=== PATIENT | male | born 1960 | race Caucasian/White ===

== ENCOUNTER 2024-05-19 17:47 | Emergency (ER) | payer BC, SELFPAY ==
[2024-05-19 18:01] VITALS: BP 190/123
[2024-05-19 18:44] LABS: % Basophils 1.1 % (0-2); % Eosinophils 3.6 % (0-6); % Immature Granulocytes 0.5 % (0-0.5); % Lymphocytes 24.3 % (20.5-51.1); % Monocytes 8.2 % (1.7-9.3); % Neutrophils 62.3 % (42.2-75.2); Absolute Basophils 0.1 10^3/uL (0-0.2); Absolute Eosinophils 0.3 10^3/uL (0-0.7); Absolute Monocytes 0.7 10^3/uL (0.1-0.6); Absolute Neutrophils 5.2 10^3/uL (1.4-6.5); Hemoglobin 15.8 g/dL (13.0-18.0); Mean Corp Hgb Conc. 35.1 g/dL (33.0-37.0); Mean Corpuscular Hgb 31.6 pg (27.0-31.0); Mean Platelet Volume 9.2 fL (7.4-10.4); Nucleated Red Blood Cells % 0 % (-); Platelet Count 252 10^3/uL (130-400); Red Cell Dist. Width 12.4 % (11.5-14.5); White Blood Cell Count 8.3 10^3/uL (4.8-10.8)
[2024-05-19 19:10] LABS: ALT (SGPT) 21 U/L (0-50); AST (SGOT) 23 U/L (17-59); Albumin 4.4 g/dl (3.5-5.0); Alkaline Phosphatase 61 U/L (38-126); Blood Urea Nitrogen 15 mg/dl (9-20); Calcium 9.5 mg/dl (8.4-10.2); Carbon Dioxide 26 mmol/L (22-30); Chloride 103 mmol/L (98-107); Glucose 91 mg/dl (70-99); Potassium 4.4 mmol/L (3.5-5.1); Sodium 141 mmol/L (135-145); Total Bilirubin 0.6 mg/dl (0.2-1.3); Total Protein 6.8 g/dl (6.3-8.2); eGFR > 60.00
[2024-05-19 20:06] VITALS: BP 217/108
[2024-05-19 20:29] VITALS: BMI 27.5
[2024-05-19 21:00] VITALS: BP 225/116
--- NOTE | 2024-05-19 21:14 | ED.GENMED ---
History of Present Illness
General
Chief Complaint: Blood Pressure Problem
Source: patient
Exam Limitations: none
Time Seen by Provider: 05/19/24 20:13
Nursing documentation reviewed up to this point in time: agreed with
History of Present Illness
History of Present Illness:
Patient presents to ED secondary to persistently elevated blood pressure noted at home over the past 2 weeks. 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
taking shower. When he checked his blood pressure it was noted to be greater than 180 systolic. Since then, patient has been checking his blood pressure daily with blood pressure fluctuating between 160 and 190 systolic. This afternoon, with
elevated blood pressure, patient called his primary care physician's office for appointment. Unfortunately, patient was not able to obtain appointment soon and was referred to urgent care center for an evaluation. At urgent care center, patient's
blood pressure was noted to be elevated and referred to ED for 'hypertensive crisis'. However, patient denies headache. Denies dizziness. Denies chest pain. Denies nausea or vomiting. Denies diaphoresis. Denies shortness of breath
Past History
Past History
ED Past Medical History: Other
Social History
Personal:
Living: with family
Employment: Employed
Review of Systems
Review of Systems
Allergies reviewed?: Yes
All Other Systems: ROS reviewed and negative except as documented in HPI and ROS
Constitutional: Reports no symptoms
Respiratory: Reports no symptoms; Denies trouble breathing
Cardiac: Reports no symptoms; Denies chest pain
ABD/GI: Reports no symptoms
Musculoskeletal: Reports no symptoms
Skin: Reports no symptoms
Neurological: Reports no symptoms; Denies dizzy or headache
Phy Exam
Physical Exam
Physical Exam:
Physical Exam
General: no apparent distress, not acutely ill. afebrile. hypertensive
Head: nc/at. eomi
Neck: supple. no meningeal signs.
Heart: s1/s2 regular rate and rhythm, no murmur. equal radial pulses.
Lungs: no acute respiratory distress. clear bilaterally
Abdomen: normal bowel sounds. not tender.
Neuro: alert and oriented. no focal neurological deficits
Skin: no rash
Psychiatric: well kept. interactive and cooperative
Extremities: no edema. no calf tenderness.
Course
Orders/Labs/Results
Orders:
Orders
05/19/24 18:06
ECG [Electrocardiogram (*1)] Urgent
Reason for Study: Other
Other Reason for Exam: elevated blood pressure
EKG- Treatment ONCE
05/19/24 18:25
Complete Blood Count/With Diff Urgent
Comprehensive Metabolic Panel Urgent
TSH Reflex To Free T4 Urgent
Comment: ADDON
05/19/24 20:54
Add On- LAB Urgent
Tests Added?: TSH to reflex Free T4
05/19/24 21:06
Troponin I Urgent
05/19/24 21:19
Electrocardiogram (*1) Urgent
Reason for Study: Hypertension, Benign
EKG- Treatment ONCE
05/19/24 21:44
HydrALAZINE [Apresoline] 10 mg IV NOW STA
Lisinopril [Zestril] 5 mg PO NOW STA
05/19/24 21:55
Urinalysis Reflex To Culture Urgent
Date Specimen was Collected: 05/19/24
Time Specimen was Collected: 21:46
Urine Microscopic Reflex Cult Urgent
Abnormal Lab Results
05/19/24 05/19/24
18:25 21:55
MCH 31.6 H pg
(27.0-31.0)
Absolute Monos (auto) 0.7 H 10^3/uL
(0.1-0.6)
Ur Occult Blood Reflex 3+ A
(Negative)
Urine RBC 11-15 A /HPF
(0-2)
05/19/24 18:25
05/19/24 18:25
Vital Signs
Initial and Last Documented VS:
Initial Vital Signs
Temp Pulse Resp BP Pulse Ox
99.2 F 74 18 190/123 96
05/19/24 18:01 05/19/24 18:01 05/19/24 18:01 05/19/24 18:01 05/19/24 18:01
Last Documented Vital Signs
Temp Pulse Resp BP Pulse Ox
99.2 F 64 22 179/100 94
05/19/24 18:01 05/19/24 23:00 05/19/24 21:00 05/19/24 23:00 05/19/24 21:30
MDM/Problems Addressed
MDM/Problems Addressed:
Patient with an unremarkable workup in ED, including blood work and urinalysis. Fortunately, although remains hypertensive, there is no indication for any endorgan damage at this time. As such, in light of patient's persistently elevated blood
pressure, decision made to start patient on lisinopril 5 mg daily, along with close PCP follow-up as an outpatient.
*Critical Care Note
Total Time (30-74mins, 75-104mins- exclusive of procedures): Not Applicable
ED Attending Note
-
Portions of this chart may have been created with voice recognition software.� Occasional wrong word or��sound alike� substitutions may have occurred due to the inherent limitations of voice recognition software.
Discharge Plan
Departure
Patient Disposition: Home (Routine Discharge)
Date of Disposition: 05/19/24
Time of Disposition: 22:56
Patient with high blood pressure during this ER visit?: Yes
Condition: Good
Discharge Problem:
Hypertension
Instructions: High Blood Pressure (DC)
Prescriptions:
New
lisinopril 5 mg tablet
5 mg PO DAILY Qty: 30 0RF
No Action
No Meds [No Current Medications]
0
metronidazole 500 MG tablet
500 mg PO TID Qty: 30 0RF
hydrocodone-acetaminophen 5 MG/500 MG tablet
1 tab PO Q6HPRN PRN (Reason: PAIN) Qty: 15 0RF
levofloxacin 500 MG tablet
500 mg PO DAILY 10 Days 0RF
Referrals:
NONE,* [Family Provider] -
Activity Restrictions/Additional Instructions:
As discussed, please follow-up with your primary care physician for reevaluation. Your prescription has been sent electronically to [facility] pharmacy in [place].
Interventions
Interventions:
*Risk Screen - Suicide Last Done: 05/19/24 20:34
*General Assessment Last Done: 05/19/24 20:34
*Neglect/Abuse Screening Last Done: 05/19/24 20:34
ED- Fall Risk Assessment Last Done: 05/19/24 20:29
*ED COVID-19 Vaccine History Last Done: 05/19/24 23:30
*Nursing Disposition Last Done: 05/19/24 23:30
ED- Cardiac Assessment Last Done: 05/19/24 20:29
ED- Neurological Assessment Last Done: 05/19/24 20:29
ED- Pulmonary Assessment Last Done: 05/19/24 20:29
Discharge Date and Time
Discharge Date/Time: 05/19/24 23:30
Print Language: [id number]
[2024-05-19 21:47] LABS: Troponin I < 0.012 ng/ml
[2024-05-19] MEDS: ZESTRIL 5 MG PO (21:55)
[2024-05-19] MEDS: APRESOLINE 10 MG IV (21:56)
[2024-05-19 22:00] VITALS: BP 189/100
[2024-05-19 22:05] LABS: TSH Reflex To Free T4 1.16 uIU/ml (0.47-4.68)
[2024-05-19 22:12] LABS: Urine Albumin Negative (Neg - Trace); Urine Bilirubin Negative (Negative); Urine Character Clear (Clear); Urine Color Yellow; Urine Glucose Negative (Negative); Urine Ketone Negative (Negative); Urine Leukocyte Negative (Negative); Urine Nitrite Negative (Negative); Urine Occult Blood 3+ (Negative); Urine Urobilinogen Negative (Neg - 1+)
[2024-05-19 22:20] VITALS: BP 182/96
[2024-05-19 22:29] LABS: Urine White Cell 0-2 /HPF (0-5)
[2024-05-19 23:00] VITALS: BP 179/100
== END 2024-05-19 23:30 | disposition home or self-care (01) ==
LOC: EMR 17:47
PROVIDERS: Student in an Organized Health Care Education/Training Program; EMERGENCY PHYSICIAN Emergency Medicine
DX: I10 Essential (primary) hypertension (principal); K57.92 Diverticulitis of intestine, part unspecified, without perforation or abscess without bleeding; Z98.0 Intestinal bypass and anastomosis status
CPT/HCPCS: 99284; 96374; 80053; 81003; 81015; 84443; 84484; 85025; 93005

== ENCOUNTER → 2024-08-12 10:52 | Outpatient (REF) | payer BC, SELFPAY | LOC: HWRAD 10:52 | PROVIDERS: ATTENDING PHYSICIAN Family Medicine | DX: F17.210 Nicotine dependence, cigarettes, uncomplicated (principal); M25.552 Pain in left hip | CPT/HCPCS: 71271; 73522 ==

== ENCOUNTER → 2024-08-15 06:27 | Day surgery (SDC) | payer BC, SELFPAY | LOC: GI 06:27 | PROVIDERS: ATTENDING PHYSICIAN Internal Medicine Gastroenterology | DX: Z12.11 Encounter for screening for malignant neoplasm of colon (principal); D12.3 Benign neoplasm of transverse colon; D12.4 Benign neoplasm of descending colon; D12.5 Benign neoplasm of sigmoid colon; K64.8 Other hemorrhoids; Z98.0 Intestinal bypass and anastomosis status | CPT/HCPCS: 45385; 45380; 88305 ==